=== PATIENT | female | born 1995 | race Two or more races ===

== ENCOUNTER 2023-11-19 15:17 | Inpatient (IN) ==
[2023-11-19 15:34] VITALS: BMI 41.5
[2023-11-19] MEDS: D5 1/2 NS 1,000 ML 1,000 ML IV SCH (15:45)
[2023-11-19 15:56] LABS: BILIRUBIN,URINE NEGATIVE (NEGATIVE); BLOOD/HEMOGLOBIN,URINE NEGATIVE (NEGATIVE); GLUCOSE, URINE NEGATIVE (NEGATIVE); KETONES,URINE NEGATIVE (NEGATIVE); LEUKOCYTE ESTERASE ,URINE 3+ (NEGATIVE); NITRITES,URINE NEGATIVE (NEGATIVE); PROTEIN,URINE 1+ (NEGATIVE); UROBILINOGEN,URINE NORMAL (NORMAL)
[2023-11-19 16:07] LABS: AMNISURE ROM TEST NO MEMBRANES RUPTURE (NO RUPTURE)
[2023-11-19 16:08] LABS: APPEARANCE,URINE SLIGHTLY HAZY (CLEAR); BACTERIA,URINE TRACE /HPF (NEGATIVE); COLOR,URINE PALE YELLOW (YELLOW); RBC,URINE NONE SEEN /HPF (0-3); SQUAMOUS EPITHELIAL CELL,UR RARE /HPF (NEGATIVE)
[2023-11-19 16:26] LABS: BASOPHILS # (AUTO) 0.2 X10^3/uL (0.0-0.1); BASOPHILS % (AUTO) 1.9 % (0.2-1.0); EOSINOPHILS # (AUTO) 0.1 x10^3/uL (0.0-0.2); EOSINOPHILS % (AUTO) 0.9 % (0.9-2.9); HEMATOCRIT 33.9 % (36.0-47.0); HEMOGLOBIN 11.2 g/dL (12.0-16.0); LYMPHOCYTES # (AUTO) 1.9 X10^3/uL (1.3-2.9); LYMPHOCYTES % (AUTO) 22.8 % (21.0-51.0); MEAN CORPUSCULAR HEMOGLOBIN 25.4 pg (27.0-34.0); MEAN CORPUSCULAR VOLUME 77.1 fL (80.0-100.0); MEAN PLATELET VOLUME 8.3 fL (7.4-11.0); MONOCYTES # (AUTO) 0.4 x10^3/uL (0.3-0.8); MONOCYTES % (AUTO) 4.9 % (0.0-13.0); NEUTROPHILS # (AUTO) 5.8 x10^3/uL (2.2-4.8); NEUTROPHILS % (AUTO) 69.5 % (42.0-75.0); PLATELET COUNT 326 X10^3/uL (150.0-450.0); RED CELL DISTRIBUTION WIDTH 14.6 % (11.6-16.5); WHITE BLOOD COUNT 8.4 X10^3/uL (3.6-10.0)
[2023-11-19 16:35] LABS: ALANINE AMINOTRANSFERASE 32 Units/L (12-78); ALBUMIN 2.5 g/dL (3.4-5.0); ALKALINE PHOSPHATASE 211 Units/L (46-116); ASPARTATE AMINO TRANSFERASE 56 Units/L (15-37); BLOOD UREA NITROGEN 8 mg/dL (7-18); CARBON DIOXIDE 19.9 mmol/L (21-32); CHLORIDE 102 mmol/L (98-107); COR CA(FOR HYPOALB) 10.2 mg/dL (8.5-10.1); CREATININE 0.51 mg/dL (0.55-1.02); GLUCOSE 91 mg/dL (65-99); SODIUM 136 mmol/L (136-145); TOTAL PROTEIN 7.4 g/dL (6.4-8.2); eGFR NON BLACK RACES > 60 (>60)
[2023-11-19 16:54] LABS: RAPID PLASMA REAGIN NONREACTIVE (NONREACTIVE)
[2023-11-19] MEDS ORDERED: REGLAN INJ 10 MG VIAL IVP PRN (16:59)
[2023-11-19] MEDS ORDERED: ZOFRAN INJ 4 MG VIAL IVP PRN (16:59)
[2023-11-19] MEDS: LR 1,000 ML IV 1,000 ML IV SCH (17:00)
[2023-11-19] MEDS: OXYTOCIN 20 UNIT/1,000 ML-NS 20 UNIT/1,000 ML PLAST..BAG IV PRN (17:20)
[2023-11-19] MEDS: PITOCIN ONE (18:02)
[2023-11-19] MEDS: NUBAIN INJ 20 MG AMP IVP PRN (18:40)
[2023-11-19] MEDS: PITOCIN IVP ONE (20:41)
[2023-11-19] MEDS ORDERED: MOTRIN TAB 800 MG PO PRN (20:55)
[2023-11-19] MEDS: NUBAIN INJ 200 MG VIAL MULTIDOSE ONE (21:19)
[2023-11-19] MEDS: OXYTOCIN 20 UNIT/1,000 ML-NS 20 UNIT/1,000 ML PLAST..BAG IV SCH (21:20)
[2023-11-19] MEDS ORDERED: AMBIEN PO PRN (21:30)
[2023-11-19] MEDS ORDERED: DERMOPLAST PAIN RELIEF SPRAY TOP PRN (21:30)
[2023-11-19] MEDS ORDERED: MILK OF MAGNESIA PO PRN (21:30)
[2023-11-20 04:59] LABS: HEMATOCRIT 29.6 % (36.0-47.0); HEMOGLOBIN 9.9 g/dL (12.0-16.0)
[2023-11-20] MEDS: PRENATAL PLUS PO SCH (08:22)
[2023-11-20] MEDS: D5 1/2 NS 1,000 ML 1,000 ML IV ONE (10:03)
[2023-11-20] MEDS ORDERED: NS 250 ML IV 250 ML IV ONE (10:04)
[2023-11-20] MEDS: NS 100 ML IV 100 ML with VENOFER 400 MG IV ONE (10:15)
[2023-11-20] MEDS: ADACEL or BOOSTRIX TDaP VACCINE IM ONE (11:20)
[2023-11-20] MEDS ORDERED: ADACEL or BOOSTRIX TDaP VACCINE IM ONE (11:37)
[2023-11-21 08:16] VITALS: RESP 18
[2023-11-21 13:22] VITALS: BP 117/59; PULSE 76; TEMP 97.1; O2SAT 96
== END 2023-11-21 12:55 | disposition home or self-care (01) | DRG 807 ==
LOC: ER 15:17 → LD 17:02 → MED/SURG 21:40
PROVIDERS: ADMIT Obstetrics & Gynecology Obstetrics; ATTEND Obstetrics & Gynecology Obstetrics